=== PATIENT | male | born 1965 | race American Indian/Alaskan Native ===

== ENCOUNTER 2023-01-05 00:31 | Inpatient (IN) ==
[2023-01-05 01:13] LABS: ABS Basophils 0.1 10^3/uL (0.0-0.1); ABS Eosinophils 0.3 10^3/uL (0.0-0.5); ABS Lymphocytes 2.1 10^3/uL (1.0-4.8); ABS Monocytes 1.1 10^3/uL (0.0-1.1); ABS Neutrophils 8.5 10^3/uL (1.5-7.6); Eosinophil % 2.7 %; Hematocrit 37.7 % (38-53); Hemoglobin 12.5 g/dL (13.2-16.3); Lymphocyte % 17.3 %; Mean Corpuscular Hemoglobin 26.4 pg (27-33); Mean Corpuscular Volume 79.8 fL (80-97); Mean Platelet Volume 8.3 fL (7.5-11.2); Platelet Count 546 10^3/uL (150-450); Red Blood Count 4.72 10^6/uL (4.06-5.63); Red Cell Distribution Width 15.9 % (12-17); White Blood Count 12.2 10^3/uL (3.6-10.2)
[2023-01-05 01:35] LABS: Albumin 3.1 g/dL (3.2-5.2); Albumin/Globulin Ratio 0.7 (1-3); Calcium 8.5 mg/dL (8.6-10.3); Creatinine, Serum 0.62 mg/dL (0.67-1.17); Globulin 4.6 g/dL (2-4); Total Bilirubin 0.5 mg/dL (0.2-1.0); Total Protein 7.7 g/dL (6.4-8.9); eGFR CKD-EPI 110.8 (>60)
[2023-01-05 02:44] LABS: High Sensitivity Troponin 1 Hr 9 pg/mL (<20)
[2023-01-05] MEDS ORDERED: Digoxin IV 0.5 MG/2 ML AMP (0.25 MG/ML) IV SLOW PU ONE (02:58)
[2023-01-05 04:45] LABS: Urine Benzodiazepine Screen None Detected (None Detect); Urine Cannabinoids Screen Presumptive Positive (None Detect); Urine Opiates Screen None Detected (None Detect)
[2023-01-05] MEDS ORDERED: Diatrizoate Meg/Sod(CONTRAST) 30 ML ORAL.SOLN PO ONE ×2 (09:21→12:10)
[2023-01-05 12:34] LABS: Calcium 8.5 mg/dL (8.6-10.3); Creatinine, Serum 0.57 mg/dL (0.67-1.17); Magnesium 2.1 mg/dL (1.9-2.7); Potassium 4.1 mmol/L (3.5-5.0); eGFR CKD-EPI 113.6 (>60)
[2023-01-05 13:50] LABS: TSH Ultra Thyroid Stim Horm 1.76 mcIU/mL (0.34-5.60)
[2023-01-05 13:52] LABS: Free T3 3.26 pg/mL (2.5-3.9); Free T4 1.33 ng/dL (0.61-1.12)
[2023-01-05 15:18] LABS: Urine Appearance Clear; Urine Bilirubin Negative (Negative); Urine Blood 1+ (Negative); Urine Color Yellow; Urine Glucose Negative (Negative); Urine Ketones Negative (Negative); Urine Nitrite Negative (Negative); Urine Protein Negative (Negative); Urine Specific Gravity 1.014 (1.002-1.030); Urine Urobilinogen Positive (Negative)
[2023-01-05 15:28] LABS: Urine Bacteria Absent (Absent); Urine Red Blood Cell 2+(6-10/hpf) (Absent); Urine White Blood Cell Trace(0-5/hpf) (Absent)
[2023-01-06 08:36] LABS: ABS Basophils 0.2 10^3/uL (0.0-0.1); ABS Eosinophils 0.1 10^3/uL (0.0-0.5); ABS Lymphocytes 1.4 10^3/uL (1.0-4.8); ABS Monocytes 0.8 10^3/uL (0.0-1.1); ABS Neutrophils 9.1 10^3/uL (1.5-7.6); ABS Nucleated RBC 0.01 10^3/ul; Eosinophil % 1.2 %; Hematocrit 38.6 % (38-53); Hemoglobin 12.8 g/dL (13.2-16.3); Lymphocyte % 12.3 %; Mean Corpuscular Hemoglobin 26.7 pg (27-33); Mean Corpuscular Hgb Conc 33.3 g/dL (31-36); Mean Corpuscular Volume 80.1 fL (80-97); Mean Platelet Volume 7.9 fL (7.5-11.2); Platelet Count 626 10^3/uL (150-450); Red Blood Count 4.82 10^6/uL (4.06-5.63); White Blood Count 11.7 10^3/uL (3.6-10.2)
[2023-01-06 08:46] LABS: Calcium 8.3 mg/dL (8.6-10.3); Creatinine, Serum 0.6 mg/dL (0.67-1.17); Potassium 3.9 mmol/L (3.5-5.0); eGFR CKD-EPI 111.9 (>60)
[2023-01-06] MEDS ORDERED: Lactated Ringers 1000 ml BAG 1,000 ML IV SCH (09:00)
[2023-01-06] MEDS ORDERED: Acetaminophen IV 1 GM/100ML 1,000 MG/100 ML BAG IV PRN (09:46)
[2023-01-06] MEDS: Morphine 2 MG/ML SYRINGE IV PRN ×5 (10:01→21:12)
[2023-01-06] MEDS ORDERED: Iohexol 350 (CONTRAST) 500 ML MDV IV ONE (10:52)
[2023-01-06] MEDS ORDERED: Magnesium Hydroxide LIQ 30 ML UDC PO PRN (18:21)
[2023-01-06] MEDS: Polyethylene Glycol 3350 17 GM PACKET PO SCH (21:07)
[2023-01-06] MEDS: Senna TAB 8.6 mg TAB PO SCH (21:07)
[2023-01-07] MEDS: Morphine 2 MG/ML SYRINGE IV PRN ×7 (00:52→20:01)
[2023-01-07] MEDS ORDERED: cefTRIAXone 1 gm/50 mL D5W 1 GM/50 ML BAG IV SCH (05:00)
[2023-01-07 09:05] LABS: ABS Basophils 0.1 10^3/uL (0.0-0.1); ABS Eosinophils 0.2 10^3/uL (0.0-0.5); ABS Monocytes 0.7 10^3/uL (0.0-1.1); ABS Neutrophils 8.9 10^3/uL (1.5-7.6); Eosinophil % 1.6 %; Hematocrit 36.8 % (38-53); Hemoglobin 12.2 g/dL (13.2-16.3); Lymphocyte % 16.6 %; Mean Corpuscular Hemoglobin 26.5 pg (27-33); Mean Corpuscular Hgb Conc 33.1 g/dL (31-36); Mean Corpuscular Volume 79.9 fL (80-97); Platelet Count 630 10^3/uL (150-450); Red Cell Distribution Width 15.7 % (12-17); White Blood Count 11.9 10^3/uL (3.6-10.2)
[2023-01-07] MEDS: ceFAZolin 2 GM in NS PREMIX 2 GM/100 ML BAG IVPB SCH ×2 (09:28→17:51)
[2023-01-07] MEDS ORDERED: Iohexol 350 (CONTRAST) 500 ML MDV IV ONE (11:04)
[2023-01-07] MEDS: Senna TAB 8.6 mg TAB PO SCH (20:00)
[2023-01-07] MEDS: Polyethylene Glycol 3350 17 GM PACKET PO SCH (20:01)
[2023-01-08] MEDS: Morphine 2 MG/ML SYRINGE IV PRN ×8 (00:46→23:50)
[2023-01-08] MEDS: ceFAZolin 2 GM in NS PREMIX 2 GM/100 ML BAG IVPB SCH ×2 (02:02→07:38)
[2023-01-08] MEDS ORDERED: cefTRIAXone 1 gm/50 mL D5W 1 GM/50 ML BAG IV SCH (08:45)
[2023-01-08] MEDS ORDERED: cefTRIAXone 2 gm/50 mL D5W 2 GM/50 ML BAG IV SCH (09:00)
[2023-01-08 14:38] LABS: ABS Basophils 0.1 10^3/uL (0.0-0.1); ABS Eosinophils 0.3 10^3/uL (0.0-0.5); ABS Lymphocytes 1.7 10^3/uL (1.0-4.8); ABS Monocytes 0.8 10^3/uL (0.0-1.1); ABS Neutrophils 10.4 10^3/uL (1.5-7.6); Hematocrit 36.2 % (38-53); Hemoglobin 11.8 g/dL (13.2-16.3); Lymphocyte % 12.8 %; Mean Corpuscular Hemoglobin 26.1 pg (27-33); Mean Corpuscular Hgb Conc 32.6 g/dL (31-36); Mean Corpuscular Volume 80.2 fL (80-97); Mean Platelet Volume 7.9 fL (7.5-11.2); Platelet Count 621 10^3/uL (150-450); Red Blood Count 4.52 10^6/uL (4.06-5.63); Red Cell Distribution Width 15.9 % (12-17); White Blood Count 13.2 10^3/uL (3.6-10.2)
[2023-01-08] MEDS: cefTRIAXone 2 gm/50 mL D5W 2 GM/50 ML BAG IV SCH (14:48)
[2023-01-08 14:56] LABS: C Reactive Protein 239.08 mg/L (<8.01); Calcium 8.6 mg/dL (8.6-10.3); Creatinine, Serum 0.54 mg/dL (0.67-1.17); Potassium 3.8 mmol/L (3.5-5.0); eGFR CKD-EPI 114.8 (>60)
[2023-01-08] MEDS: Senna TAB 8.6 mg TAB PO SCH (21:35)
[2023-01-08] MEDS: Polyethylene Glycol 3350 17 GM PACKET PO SCH (22:17)
[2023-01-09] MEDS ORDERED: HYDROmorphone 1 MG/1 ML SYRINGE IV SLOW PU ONE (00:39)
[2023-01-09] MEDS: Morphine 2 MG/ML SYRINGE IV PRN ×9 (02:18→23:44)
[2023-01-09 06:02] LABS: ABS Basophils 0.1 10^3/uL (0.0-0.1); ABS Eosinophils 0.2 10^3/uL (0.0-0.5); ABS Lymphocytes 2.2 10^3/uL (1.0-4.8); ABS Monocytes 0.6 10^3/uL (0.0-1.1); ABS Neutrophils 11.8 10^3/uL (1.5-7.6); ABS Nucleated RBC 0.01 10^3/ul; Eosinophil % 1.2 %; Hematocrit 36.1 % (38-53); Hemoglobin 11.9 g/dL (13.2-16.3); Lymphocyte % 14.5 %; Mean Corpuscular Hemoglobin 26.3 pg (27-33); Mean Corpuscular Hgb Conc 32.9 g/dL (31-36); Mean Corpuscular Volume 79.8 fL (80-97); Mean Platelet Volume 8.3 fL (7.5-11.2); Nucleated Red Blood Cells % 0.1 %/100WBC (0.0-0.8); Platelet Count 644 10^3/uL (150-450); Red Blood Count 4.52 10^6/uL (4.06-5.63); Red Cell Distribution Width 15.7 % (12-17); White Blood Count 14.9 10^3/uL (3.6-10.2)
[2023-01-09 06:36] LABS: C Reactive Protein 248.79 mg/L (<8.01); Calcium 8.6 mg/dL (8.6-10.3); Creatinine, Serum 0.59 mg/dL (0.67-1.17); Potassium 3.9 mmol/L (3.5-5.0); eGFR CKD-EPI 111.8 (>60)
[2023-01-09] MEDS: cefTRIAXone 2 gm/50 mL D5W 2 GM/50 ML BAG IV SCH (14:15)
[2023-01-09] MEDS ORDERED: Gadoteridol (CONTRAST) 279.3 MG/ML 10 ML IV ONE (20:52)
[2023-01-09] MEDS: Polyethylene Glycol 3350 17 GM PACKET PO SCH (21:11)
[2023-01-09] MEDS: Senna TAB 8.6 mg TAB PO SCH (21:11)
[2023-01-10] MEDS: Morphine 2 MG/ML SYRINGE IV PRN ×3 (01:52→09:13)
[2023-01-10 06:09] LABS: ABS Basophils 0.1 10^3/uL (0.0-0.1); ABS Eosinophils 0.4 10^3/uL (0.0-0.5); ABS Lymphocytes 2.2 10^3/uL (1.0-4.8); ABS Monocytes 0.6 10^3/uL (0.0-1.1); ABS Neutrophils 9.8 10^3/uL (1.5-7.6); ABS Nucleated RBC 0.01 10^3/ul; Eosinophil % 3.2 %; Hematocrit 34.1 % (38-53); Hemoglobin 11.3 g/dL (13.2-16.3); Lymphocyte % 16.6 %; Mean Corpuscular Hemoglobin 26.4 pg (27-33); Mean Corpuscular Hgb Conc 33.2 g/dL (31-36); Mean Corpuscular Volume 79.7 fL (80-97); Mean Platelet Volume 7.8 fL (7.5-11.2); Nucleated Red Blood Cells % 0.1 %/100WBC (0.0-0.8); Platelet Count 690 10^3/uL (150-450); Red Blood Count 4.28 10^6/uL (4.06-5.63); White Blood Count 13.2 10^3/uL (3.6-10.2)
[2023-01-10 06:20] LABS: Calcium 8.7 mg/dL (8.6-10.3); Creatinine, Serum 0.49 mg/dL (0.67-1.17); Potassium 4.1 mmol/L (3.5-5.0); eGFR CKD-EPI 118.2 (>60)
[2023-01-10] MEDS: cefTRIAXone 2 gm/50 mL D5W 2 GM/50 ML BAG IV SCH (12:47)
[2023-01-10] MEDS: Senna TAB 8.6 mg TAB PO SCH (20:13)
[2023-01-10] MEDS: Polyethylene Glycol 3350 17 GM PACKET PO SCH (20:15)
[2023-01-11 07:14] LABS: ABS Basophils 0.1 10^3/uL (0.0-0.1); ABS Eosinophils 0.5 10^3/uL (0.0-0.5); ABS Lymphocytes 2.5 10^3/uL (1.0-4.8); ABS Monocytes 0.5 10^3/uL (0.0-1.1); ABS Neutrophils 8.6 10^3/uL (1.5-7.6); ABS Nucleated RBC 0.01 10^3/ul; Eosinophil % 3.8 %; Hematocrit 36.4 % (38-53); Hemoglobin 11.8 g/dL (13.2-16.3); Lymphocyte % 20.3 %; Mean Corpuscular Hemoglobin 26.1 pg (27-33); Mean Corpuscular Hgb Conc 32.4 g/dL (31-36); Mean Corpuscular Volume 80.7 fL (80-97); Mean Platelet Volume 7.8 fL (7.5-11.2); Nucleated Red Blood Cells % 0.1 %/100WBC (0.0-0.8); Platelet Count 671 10^3/uL (150-450); Red Blood Count 4.51 10^6/uL (4.06-5.63); White Blood Count 12.1 10^3/uL (3.6-10.2)
[2023-01-11 08:29] LABS: Anion Gap 9 mmol/L (2-16); Blood Urea Nitrogen 16 mg/dL (6-24); CO2 Carbon Dioxide 22 mmol/L (22-32); Calcium 8.8 mg/dL (8.6-10.3); Chloride 100 mmol/L (101-111); Glucose 86 mg/dL (70-100); Sodium 131 mmol/L (135-145); eGFR CKD-EPI 111.2 (>60)
[2023-01-11] MEDS: Morphine 2 MG/ML SYRINGE IV PRN ×3 (08:53→20:44)
[2023-01-11 10:48] LABS: Potassium, Whole Blood 5.4 mmol/L (3.4-4.5)
[2023-01-11] MEDS: cefTRIAXone 2 gm/50 mL D5W 2 GM/50 ML BAG IV SCH (12:52)
[2023-01-11] MEDS: Polyethylene Glycol 3350 17 GM PACKET PO SCH (20:44)
[2023-01-11] MEDS: Senna TAB 8.6 mg TAB PO SCH (20:44)
[2023-01-12] MEDS: Morphine 2 MG/ML SYRINGE IV PRN ×8 (00:01→23:59)
[2023-01-12 07:00] LABS: ABS Basophils 0.1 10^3/uL (0.0-0.1); ABS Eosinophils 0.5 10^3/uL (0.0-0.5); ABS Lymphocytes 2.3 10^3/uL (1.0-4.8); ABS Monocytes 0.6 10^3/uL (0.0-1.1); ABS Neutrophils 7.8 10^3/uL (1.5-7.6); ABS Nucleated RBC 0.01 10^3/ul; Eosinophil % 4.4 %; Hematocrit 35.4 % (38-53); Hemoglobin 11.6 g/dL (13.2-16.3); Lymphocyte % 20.3 %; Mean Corpuscular Hemoglobin 26.3 pg (27-33); Mean Corpuscular Hgb Conc 32.8 g/dL (31-36); Mean Platelet Volume 7.2 fL (7.5-11.2); Nucleated Red Blood Cells % 0.1 %/100WBC (0.0-0.8); Platelet Count 679 10^3/uL (150-450); Red Blood Count 4.42 10^6/uL (4.06-5.63); Red Cell Distribution Width 16.1 % (12-17); White Blood Count 11.3 10^3/uL (3.6-10.2)
[2023-01-12] MEDS ORDERED: NS 0.9% 1000 ml BAG 1,000 ML IV ONE (07:00)
[2023-01-12 07:08] LABS: Calcium 8.8 mg/dL (8.6-10.3); Creatinine, Serum 0.56 mg/dL (0.67-1.17); Magnesium 1.6 mg/dL (1.9-2.7); Potassium 4.1 mmol/L (3.5-5.0); eGFR CKD-EPI 113.5 (>60)
[2023-01-12] MEDS ORDERED: Midazolam 5 mg/5 ml VIAL 1 mg/ml 5 ml VIAL (5 mg) ONE (07:47)
[2023-01-12] MEDS ORDERED: fentaNYL 100 mcg/2 ml 50 MCG/ML VIAL ONE (07:47)
[2023-01-12] MEDS ORDERED: Flumazenil 0.5 mg/5 ml 0.1 MG/ML 5 ml VIAL ONE (07:48)
[2023-01-12] MEDS ORDERED: Naloxone 0.4 mg VIAL 0.4 mg/ml 1 ml VIAL ONE (07:48)
[2023-01-12] MEDS ORDERED: Midazolam 10 mg/10 ml VIAL 1 mg/ml 10 ml VIAL (10 mg) IV SLOW PU ONE (08:03)
[2023-01-12] MEDS ORDERED: fentaNYL 100 mcg/2 ml 50 MCG/ML VIAL IV SLOW PU ONE (08:03)
[2023-01-12] MEDS ORDERED: Magnesium Sulfate 2 gm BAG 2 GM/50 ML BAG IVPB ONE (08:44)
[2023-01-12] MEDS ORDERED: Magnesium Sulfate IV 1GM/100ML 1 GM/100 ML BAG IV ONE (10:44)
[2023-01-12] MEDS ORDERED: Metoprolol Tartrate 5 mg VIAL 5 ml VIAL (1 mg/ml) IV ONE (15:42)
[2023-01-12] MEDS: cefTRIAXone 2 gm/50 mL D5W 2 GM/50 ML BAG IV SCH (16:04)
[2023-01-12] MEDS ORDERED: Metoprolol Tartrate 5 mg VIAL 5 ml VIAL (1 mg/ml) IV PRN (17:30)
[2023-01-12] MEDS: Polyethylene Glycol 3350 17 GM PACKET PO SCH (20:30)
[2023-01-12] MEDS: Senna TAB 8.6 mg TAB PO SCH (20:30)
[2023-01-13] MEDS: Morphine 2 MG/ML SYRINGE IV PRN ×3 (05:53→18:05)
[2023-01-13] MEDS: cefTRIAXone 2 gm/50 mL D5W 2 GM/50 ML BAG IV SCH (13:58)
[2023-01-13] MEDS: Polyethylene Glycol 3350 17 GM PACKET PO SCH (22:24)
[2023-01-13] MEDS: Senna TAB 8.6 mg TAB PO SCH (22:25)
[2023-01-14 07:49] LABS: Anion Gap 8 mmol/L (2-16); Blood Urea Nitrogen 17 mg/dL (6-24); CO2 Carbon Dioxide 23 mmol/L (22-32); Calcium 8.7 mg/dL (8.6-10.3); Chloride 99 mmol/L (101-111); Glucose 97 mg/dL (70-100); Sodium 130 mmol/L (135-145); eGFR CKD-EPI 117.5 (>60)
[2023-01-14 07:52] LABS: ABS Basophils 0.1 10^3/uL (0.0-0.1); ABS Eosinophils 0.6 10^3/uL (0.0-0.5); ABS Lymphocytes 2.6 10^3/uL (1.0-4.8); ABS Monocytes 0.6 10^3/uL (0.0-1.1); ABS Neutrophils 6.8 10^3/uL (1.5-7.6); ABS Nucleated RBC 0.01 10^3/ul; Eosinophil % 5.9 %; Hematocrit 40.6 % (38-53); Hemoglobin 12.9 g/dL (13.2-16.3); Mean Corpuscular Hemoglobin 26.3 pg (27-33); Mean Corpuscular Hgb Conc 31.8 g/dL (31-36); Mean Corpuscular Volume 82.6 fL (80-97); Mean Platelet Volume 6.9 fL (7.5-11.2); Nucleated Red Blood Cells % 0.1 %/100WBC (0.0-0.8); Platelet Count 520 10^3/uL (150-450); Red Blood Count 4.92 10^6/uL (4.06-5.63); Red Cell Distribution Width 16.4 % (12-17); White Blood Count 10.8 10^3/uL (3.6-10.2)
[2023-01-14] MEDS: Morphine 2 MG/ML SYRINGE IV PRN (09:21)
[2023-01-14 11:15] LABS: Magnesium 1.6 mg/dL (1.9-2.7); Potassium Redraw 4.1 mmol/L (3.5-5.0)
[2023-01-14] MEDS ORDERED: Morphine 2 MG/ML SYRINGE IV PRN (11:15)
[2023-01-14] MEDS ORDERED: Magnesium Sulfate 2 gm BAG 2 GM/50 ML BAG IVPB ONE (11:23)
[2023-01-14] MEDS: cefTRIAXone 2 gm/50 mL D5W 2 GM/50 ML BAG IV SCH (17:29)
[2023-01-14] MEDS: Senna TAB 8.6 mg TAB PO SCH (19:46)
[2023-01-14] MEDS: Polyethylene Glycol 3350 17 GM PACKET PO SCH (19:51)
[2023-01-14] MEDS ORDERED: Lidocaine PATCH 4% TOPICAL ONE (21:42)
[2023-01-14] MEDS ORDERED: Ondansetron 4 mg VIAL 2 MG/ML 2 ml VIAL IV ONE (22:22)
[2023-01-15] MEDS: cefTRIAXone 2 gm/50 mL D5W 2 GM/50 ML BAG IV SCH (12:20)
[2023-01-15] MEDS: Polyethylene Glycol 3350 17 GM PACKET PO SCH (19:49)
[2023-01-15] MEDS: Senna TAB 8.6 mg TAB PO SCH (19:49)
[2023-01-16 08:18] LABS: ABS Basophils 0.2 10^3/uL (0.0-0.1); ABS Eosinophils 0.4 10^3/uL (0.0-0.5); ABS Lymphocytes 1.8 10^3/uL (1.0-4.8); ABS Monocytes 0.5 10^3/uL (0.0-1.1); ABS Neutrophils 9.2 10^3/uL (1.5-7.6); ABS Nucleated RBC 0.01 10^3/ul; Eosinophil % 3.5 %; Hematocrit 36.5 % (38-53); Hemoglobin 12.1 g/dL (13.2-16.3); Lymphocyte % 14.6 %; Mean Corpuscular Hemoglobin 26.1 pg (27-33); Mean Corpuscular Volume 79.2 fL (80-97); Nucleated Red Blood Cells % 0.1 %/100WBC (0.0-0.8); Platelet Count 594 10^3/uL (150-450); Red Blood Count 4.61 10^6/uL (4.06-5.63); Red Cell Distribution Width 16.4 % (12-17)
[2023-01-16 10:06] LABS: Creatinine, Serum 0.63 mg/dL (0.67-1.17); Magnesium 1.8 mg/dL (1.9-2.7); Potassium 4.2 mmol/L (3.5-5.0); eGFR CKD-EPI 109.6 (>60)
[2023-01-16] MEDS ORDERED: Magnesium Sulfate 2 gm BAG 2 GM/50 ML BAG IVPB ONE (11:50)
[2023-01-16 12:05] LABS: HDL Cholesterol 35.9 mg/dL
[2023-01-16] MEDS: cefTRIAXone 2 gm/50 mL D5W 2 GM/50 ML BAG IV SCH (13:45)
[2023-01-16] MEDS ORDERED: Magnesium Sulfate IV 1GM/100ML 1 GM/100 ML BAG IV ONE (13:50)
[2023-01-16] MEDS: Morphine 2 MG/ML SYRINGE IV PRN (19:44)
[2023-01-16] MEDS: Polyethylene Glycol 3350 17 GM PACKET PO SCH (20:49)
[2023-01-16] MEDS: Senna TAB 8.6 mg TAB PO SCH (20:49)
[2023-01-16] MEDS ORDERED: HYDROmorphone 1 MG/1 ML SYRINGE IV SLOW PU ONE (21:02)
[2023-01-17] MEDS: Morphine 2 MG/ML SYRINGE IV PRN (03:23)
[2023-01-17] MEDS ORDERED: HYDROmorphone 1 MG/1 ML SYRINGE IV ONE (04:46)
[2023-01-17 06:41] LABS: ABS Basophils 0.1 10^3/uL (0.0-0.1); ABS Eosinophils 0.5 10^3/uL (0.0-0.5); ABS Lymphocytes 2.2 10^3/uL (1.0-4.8); ABS Monocytes 0.7 10^3/uL (0.0-1.1); ABS Nucleated RBC 0.01 10^3/ul; Eosinophil % 4.7 %; Hematocrit 34.2 % (38-53); Hemoglobin 11.1 g/dL (13.2-16.3); Lymphocyte % 18.9 %; Mean Corpuscular Hemoglobin 25.8 pg (27-33); Mean Corpuscular Hgb Conc 32.5 g/dL (31-36); Mean Corpuscular Volume 79.6 fL (80-97); Mean Platelet Volume 7.5 fL (7.5-11.2); Nucleated Red Blood Cells % 0.1 %/100WBC (0.0-0.8); Platelet Count 527 10^3/uL (150-450); Red Cell Distribution Width 15.8 % (12-17); White Blood Count 11.6 10^3/uL (3.6-10.2)
[2023-01-17 07:02] LABS: Calcium 8.4 mg/dL (8.6-10.3); Creatinine, Serum 0.52 mg/dL (0.67-1.17); Magnesium 1.9 mg/dL (1.9-2.7); Potassium 4.3 mmol/L (3.5-5.0); eGFR CKD-EPI 116.1 (>60)
[2023-01-17] MEDS: cefTRIAXone 2 gm/50 mL D5W 2 GM/50 ML BAG IV SCH (13:45)
[2023-01-17] MEDS: Senna TAB 8.6 mg TAB PO SCH (21:01)
[2023-01-17] MEDS: Polyethylene Glycol 3350 17 GM PACKET PO SCH (21:03)
[2023-01-18] MEDS: cefTRIAXone 2 gm/50 mL D5W 2 GM/50 ML BAG IV SCH (13:48)
[2023-01-18] MEDS: Polyethylene Glycol 3350 17 GM PACKET PO SCH (20:22)
[2023-01-18] MEDS: Senna TAB 8.6 mg TAB PO SCH (20:22)
[2023-01-19 06:23] LABS: ABS Basophils 0.1 10^3/uL (0.0-0.1); ABS Eosinophils 0.6 10^3/uL (0.0-0.5); ABS Lymphocytes 2.2 10^3/uL (1.0-4.8); ABS Monocytes 0.6 10^3/uL (0.0-1.1); ABS Neutrophils 6.4 10^3/uL (1.5-7.6); ABS Nucleated RBC 0.01 10^3/ul; Eosinophil % 5.9 %; Hematocrit 35.9 % (38-53); Lymphocyte % 22.2 %; Mean Corpuscular Hemoglobin 26.3 pg (27-33); Mean Corpuscular Hgb Conc 33.3 g/dL (31-36); Mean Corpuscular Volume 79.1 fL (80-97); Mean Platelet Volume 7.3 fL (7.5-11.2); Nucleated Red Blood Cells % 0.1 %/100WBC (0.0-0.8); Platelet Count 550 10^3/uL (150-450); Red Blood Count 4.54 10^6/uL (4.06-5.63)
[2023-01-19 06:50] LABS: Calcium 8.7 mg/dL (8.6-10.3); Creatinine, Serum 0.59 mg/dL (0.67-1.17); Potassium 4.2 mmol/L (3.5-5.0); eGFR CKD-EPI 111.8 (>60)
[2023-01-19] MEDS: cefTRIAXone 2 gm/50 mL D5W 2 GM/50 ML BAG IV SCH (14:13)
[2023-01-19] MEDS: Senna TAB 8.6 mg TAB PO SCH (21:45)
[2023-01-19] MEDS: Polyethylene Glycol 3350 17 GM PACKET PO SCH (21:45)
[2023-01-20] MEDS: cefTRIAXone 2 gm/50 mL D5W 2 GM/50 ML BAG IV SCH (14:36)
[2023-01-20] MEDS: Polyethylene Glycol 3350 17 GM PACKET PO SCH (21:21)
[2023-01-20] MEDS: Senna TAB 8.6 mg TAB PO SCH (21:22)
[2023-01-21 07:49] LABS: ABS Basophils 0.1 10^3/uL (0.0-0.1); ABS Eosinophils 0.5 10^3/uL (0.0-0.5); ABS Lymphocytes 2.9 10^3/uL (1.0-4.8); ABS Monocytes 0.9 10^3/uL (0.0-1.1); ABS Neutrophils 5.6 10^3/uL (1.5-7.6); Eosinophil % 5.4 %; Hematocrit 33.7 % (38-53); Lymphocyte % 29.1 %; Mean Corpuscular Hemoglobin 25.9 pg (27-33); Mean Corpuscular Hgb Conc 32.6 g/dL (31-36); Mean Corpuscular Volume 79.6 fL (80-97); Mean Platelet Volume 6.8 fL (7.5-11.2); Platelet Count 550 10^3/uL (150-450); Red Blood Count 4.24 10^6/uL (4.06-5.63); Red Cell Distribution Width 15.9 % (12-17); White Blood Count 9.9 10^3/uL (3.6-10.2)
[2023-01-21 08:14] LABS: Albumin 2.9 g/dL (3.2-5.2); Albumin/Globulin Ratio 0.6 (1-3); C Reactive Protein 122.94 mg/L (<8.01); Calcium 8.8 mg/dL (8.6-10.3); Creatinine, Serum 0.62 mg/dL (0.67-1.17); Globulin 5.1 g/dL (2-4); Potassium 4.1 mmol/L (3.5-5.0); Total Bilirubin 0.2 mg/dL (0.2-1.0); eGFR CKD-EPI 110.1 (>60)
[2023-01-21] MEDS: Polyethylene Glycol 3350 17 GM PACKET PO SCH (21:28)
[2023-01-21] MEDS: Senna TAB 8.6 mg TAB PO SCH (21:28)
[2023-01-22 15:12] VITALS: BP 157/69
== END 2023-01-22 15:59 | disposition home or self-care (01) | DRG 201 ==
LOC: ED 00:31 → SUATTDRO 06:39 → EDHOLD 06:39 → MEDTELE 20:10
PROVIDERS: ADMIT Internal Medicine Pulmonary Disease; ATTEND Internal Medicine

== ENCOUNTER 2023-05-08 12:58 | Inpatient (IN) ==
[2023-05-08 13:44] LABS: Activated Partial Thrombo Time 33.1 seconds (26.0-38.0); INR 1.47 (0.83-1.13)
[2023-05-08 14:29] LABS: Albumin 3.8 g/dL (3.2-5.2); C Reactive Protein 60.5 mg/L (<8.01); Calcium 8.5 mg/dL (8.6-10.3); Creatinine, Serum 0.84 mg/dL (0.67-1.17); Globulin 3.9 g/dL (2-4); Potassium 4.3 mmol/L (3.5-5.0); Total Protein 7.7 g/dL (6.4-8.9); eGFR CKD-EPI 100.5 (>60)
[2023-05-08 14:34] LABS: ABS Basophils 0.1 10^3/uL (0.0-0.1); ABS Eosinophils 0.3 10^3/uL (0.0-0.5); ABS Lymphocytes 2.3 10^3/uL (1.0-4.8); ABS Monocytes 0.4 10^3/uL (0.0-1.1); ABS Neutrophils 7.4 10^3/uL (1.5-7.6); ABS Nucleated RBC 0.01 10^3/ul; Eosinophil % 2.5 %; Hemoglobin 11.1 g/dL (13.2-16.3); Lymphocyte % 21.8 %; Mean Corpuscular Hemoglobin 25.2 pg (27-33); Mean Corpuscular Hgb Conc 31.9 g/dL (31-36); Mean Corpuscular Volume 79.1 fL (80-97); Mean Platelet Volume 8.6 fL (7.5-11.2); Nucleated Red Blood Cells % 0.1 %/100WBC (0.0-0.8); Platelet Count 279 10^3/uL (150-450); Red Blood Count 4.42 10^6/uL (4.06-5.63); Red Cell Distribution Width 17.3 % (12-17); White Blood Count 10.5 10^3/uL (3.6-10.2)
[2023-05-08] MEDS: Iohexol 350 (CONTRAST) 500 ML MDV IV ONE (15:31)
[2023-05-08 15:41] LABS: Venous Bicarbonate HCO3 25.4 mmol/L (24-28)
[2023-05-08] MEDS: Azithromycin 500 mg/250 ml NS 500 MG/250 ML BAG IVPB ONE (17:30)
[2023-05-08] MEDS: NS 0.9% 1000 ml BAG 1,000 ML IV ONE (17:30)
[2023-05-08] MEDS ORDERED: Ondansetron 4 mg VIAL 2 MG/ML 2 ml VIAL ONE (17:43)
[2023-05-08] MEDS: Ondansetron 4 mg VIAL 2 MG/ML 2 ml VIAL IV ONE ×2 (17:46→18:42)
[2023-05-08 18:18] LABS: High Sensitivity Troponin 1 Hr 45 pg/mL (<20)
[2023-05-08] MEDS: cefTRIAXone 1 gm/50 mL D5W 1 GM/50 ML BAG IV ONE (19:14)
[2023-05-08 20:01] LABS: Magnesium 1.9 mg/dL (1.9-2.7)
[2023-05-08] MEDS ORDERED: Albuterol/Ipratropium NEB.SOL (2.5/0.5 MG) 3 ML NEB.SOLN ONE (21:29)
[2023-05-08] MEDS: Albuterol/Ipratropium NEB.SOL (2.5/0.5 MG) 3 ML NEB.SOLN INH PRN (21:32)
[2023-05-09] MEDS: Magnesium Sulfate IV 1GM/100ML 1 GM/100 ML BAG IV ONE (03:06)
[2023-05-09] MEDS: Morphine 2 MG/ML SYRINGE IV PRN (04:55)
[2023-05-09 06:27] LABS: Hemoglobin 11.9 g/dL (13.2-16.3); Mean Corpuscular Hemoglobin 25.3 pg (27-33); Mean Corpuscular Hgb Conc 30.5 g/dL (31-36); Mean Platelet Volume 8.6 fL (7.5-11.2); Platelet Count 247 10^3/uL (150-450); Red Cell Distribution Width 18.3 % (12-17)
[2023-05-09 07:13] LABS: Blood Urea Nitrogen 30 mg/dL (6-24); CO2 Carbon Dioxide < 7 mmol/L (22-32); Calcium 8.4 mg/dL (8.6-10.3); Chloride 99 mmol/L (101-111); Creatinine, Serum 2.05 mg/dL (0.67-1.17); Glucose 58 mg/dL (70-100); Potassium 6.7 mmol/L (3.5-5.0); Sodium 133 mmol/L (135-145); eGFR CKD-EPI 36.6 (>60)
[2023-05-09] MEDS: Dextrose 50% Syringe 50 ml 25 GM/50 ML SYRINGE IV PUSH ONE (07:26)
[2023-05-09 07:36] LABS: ABS Basophils 0.1 10^3/uL (0.0-0.1); ABS Lymphocytes 1.1 10^3/uL (1.0-4.8); ABS Neutrophils 11.8 10^3/uL (1.5-7.6); ABS Nucleated RBC 0.06 10^3/ul; Anisocytosis 1+; Eosinophil % 0.1 %; Lymphocyte % 8.1 %; Nucleated Red Blood Cells % 0.4 %/100WBC (0.0-0.8); Polychromasia 1+
[2023-05-09 07:55] LABS: PCO2 Arterial 21 mmHg (35-45); PO2 Arterial 109 mmHg (80-100)
[2023-05-09] MEDS: NS 0.9% 1000 ml BAG 1,000 ML IV ONE (08:13)
[2023-05-09 08:29] LABS: Blood Urea Nitrogen 32 mg/dL (6-24); CO2 Carbon Dioxide < 7 mmol/L (22-32); Calcium 8.3 mg/dL (8.6-10.3); Chloride 96 mmol/L (101-111); Creatinine, Serum 2.31 mg/dL (0.67-1.17); Glucose 132 mg/dL (70-100); Sodium 131 mmol/L (135-145); eGFR CKD-EPI 31.7 (>60)
[2023-05-09 09:29] LABS: Potassium Redraw 5.8 mmol/L (3.5-5.0)
[2023-05-09] MEDS: SODIUM ZIRCONIUM CYCLOSILICATE 10 GM PACKET PO ONE (10:33)
[2023-05-09] MEDS ORDERED: Sulfur Hexaflouride MICROSPHR 25 MG VIAL ONE (10:43)
[2023-05-09] MEDS ORDERED: Vancomycin per Pharmacy 1 EA NOTE FOLLOW UP SCH (11:00)
[2023-05-09] MEDS: Lactated Ringers 1000 ml BAG 1,000 ML IV SCH (11:04)
[2023-05-09] MEDS: Vancomycin 2,000 MG in NS 0.9% 500 ml BAG 500 ML IVPB ONE (11:05)
[2023-05-09 11:10] LABS: Albumin 3.6 g/dL (3.2-5.2); Alcohol, S < 13 mg/dL (<13); Alkaline Phosphatase 102 U/L (35-149); Direct Bilirubin 1.7 mg/dL (0.03-0.18); Globulin 3.7 g/dL (2-4); Indirect Bilirubin 1.6 mg/dL (0.3-1.0); Total Bilirubin 3.3 mg/dL (0.2-1.0); Total Protein 7.3 g/dL (6.4-8.9)
[2023-05-09 11:29] LABS: ALT 1302 U/L (7-52); AST 1655 U/L (13-39)
[2023-05-09 11:32] LABS: High Sensitivity Troponin 1 Hr 103 pg/mL (<20)
[2023-05-09 12:25] LABS: INR 2.72 (0.83-1.13)
[2023-05-09 13:08] VITALS: BP 97/63
[2023-05-09 13:09] LABS: Calcium 8.3 mg/dL (8.6-10.3); Creatinine, Serum 2.63 mg/dL (0.67-1.17); Potassium 7.4 mmol/L (3.5-5.0); eGFR CKD-EPI 27.2 (>60)
[2023-05-09] MEDS: Norepinephrine 4 MG/250mL D5W 4,000 MCG/250 ML BAG IV ONE ×2 (13:33→16:20)
[2023-05-09] MEDS ORDERED: Rocuronium 50 mg VIAL 10 mg/ml 5 ml VIAL (50 mg) ONE (13:53)
[2023-05-09] MEDS ORDERED: Midazolam 10 mg/10 ml VIAL 1 mg/ml 10 ml VIAL (10 mg) ONE (13:53)
[2023-05-09] MEDS ORDERED: Etomidate 40 mg/20 ml (2 MG/ML) 20 ml VIAL (40 mg) ONE (13:53)
[2023-05-09] MEDS: Midazolam PREMIXBAG 1 MG/ML NS 100 ML IV ONE (14:05)
[2023-05-09] MEDS: CALCIUM GLUCONATE 1GM/50ML NS 1 GM/50 ML BAG IV ONE (14:14)
[2023-05-09] MEDS: Rocuronium 50 mg VIAL 10 mg/ml 5 ml VIAL (50 mg) ONE (14:16)
[2023-05-09] MEDS: Milrinone 200 MCG/ML PREMIXBAG 20,000 MCG/100 ML BAG IV SCH (14:20)
[2023-05-09] MEDS: Sodium Bicarbonate 8.4% SYR 50 ml SYRINGE IV ONE (14:22)
[2023-05-09] MEDS: Sodium Bicarbonate 8.4% SYR 50 ml SYRINGE ONE (14:22)
[2023-05-09] MEDS: Succinylcholine 200 mg VIAL 20 mg/ml 10 ml VIAL (200 mg) ONE (14:22)
[2023-05-09] MEDS: Midazolam 5 mg/5 ml VIAL 1 mg/ml 5 ml VIAL (5 mg) ONE (14:23)
[2023-05-09] MEDS: Midazolam 2 mg/2 ml VIAL 1 mg/ml 2 ml VIAL (2 mg) IV SLOW PU ONE (14:23)
[2023-05-09] MEDS: DOBUTamine 2000 MCG/ML IVPREMX 500 MG/250 ML BAG IV SCH (15:00)
[2023-05-09] MEDS: Azithromycin 500 mg/250 ml NS 500 MG/250 ML BAG IVPB SCH (15:07)
[2023-05-09] MEDS: Norepinephrine 4 MG/250mL D5W 4,000 MCG/250 ML BAG IV SCH (15:58)
[2023-05-09] MEDS ORDERED: Chlorhexidine MOUTHWASH 0.12% 15 ML UDC SWISH SPIT SCH (16:00)
[2023-05-09] MEDS ORDERED: Azithromycin 500 mg/250 ml NS 500 MG/250 ML BAG IVPB SCH (16:00)
[2023-05-09] MEDS ORDERED: Pantoprazole VIAL 40 MG VIAL IV SCH (16:00)
[2023-05-09] MEDS: Midazolam PREMIXBAG 1 MG/ML NS 100 ML IV SCH (16:21)
[2023-05-09 16:22] LABS: Resp Rate 30
[2023-05-09 16:25] LABS: PCO2 Arterial 35 mmHg (35-45); PO2 Arterial 144 mmHg (80-100)
[2023-05-09] MEDS ORDERED: cefTRIAXone 1 gm/50 mL D5W 1 GM/50 ML BAG IV SCH (17:00)
[2023-05-09 17:37] LABS: Calcium 7.7 mg/dL (8.6-10.3); Creatinine, Serum 2.91 mg/dL (0.67-1.17); Potassium 6.5 mmol/L (3.5-5.0); eGFR CKD-EPI 24.1 (>60)
[2023-05-10] MEDS ORDERED: Vancomycin Random Level NOTE FOLLOW UP ONE (06:00)
== END 2023-05-09 17:00 | disposition short-term general hospital (02) | DRG 194 ==
LOC: EDHOLD 12:58 → ED 12:58 → MEDTELE 21:59 → ICU 05-09 07:53
PROVIDERS: ADMIT Hospitalist; ATTEND Internal Medicine Pulmonary Disease

== ENCOUNTER 2023-06-24 17:50 | Inpatient (IN) ==
[2023-06-24 18:06] LABS: ABS Basophils 0.1 10^3/uL (0.0-0.1); ABS Eosinophils 0.2 10^3/uL (0.0-0.5); ABS Lymphocytes 2.2 10^3/uL (1.0-4.8); ABS Monocytes 0.4 10^3/uL (0.0-1.1); ABS Neutrophils 3.8 10^3/uL (1.5-7.6); ABS Nucleated RBC 0.02 10^3/ul; Eosinophil % 3.3 %; Hematocrit 30.9 % (38-53); Hemoglobin 9.9 g/dL (13.2-16.3); Lymphocyte % 32.7 %; Mean Corpuscular Hemoglobin 25.2 pg (27-33); Mean Corpuscular Hgb Conc 32.1 g/dL (31-36); Mean Corpuscular Volume 78.6 fL (80-97); Mean Platelet Volume 8.6 fL (7.5-11.2); Nucleated Red Blood Cells % 0.3 %/100WBC (0.0-0.8); Platelet Count 253 10^3/uL (150-450); Red Blood Count 3.93 10^6/uL (4.06-5.63); Red Cell Distribution Width 19.7 % (12-17); White Blood Count 6.8 10^3/uL (3.6-10.2)
[2023-06-24 18:16] LABS: INR 1.87 (0.83-1.13)
[2023-06-24 18:35] LABS: Albumin 3.6 g/dL (3.2-5.2); Albumin/Globulin Ratio 0.9 (1-3); Calcium 8.8 mg/dL (8.6-10.3); Creatinine, Serum 1.4 mg/dL (0.67-1.17); Globulin 3.8 g/dL (2-4); Potassium 3.6 mmol/L (3.5-5.0); Total Bilirubin 1.1 mg/dL (0.2-1.0); Total Protein 7.4 g/dL (6.4-8.9); eGFR CKD-EPI 57.9 (>60)
[2023-06-24 19:31] LABS: High Sensitivity Troponin 1 Hr 47 pg/mL (<20)
[2023-06-25 01:31] LABS: C Reactive Protein 52.27 mg/L (<8.01); Magnesium 1.3 mg/dL (1.9-2.7)
[2023-06-25 01:53] LABS: Ferritin 87.7 ng/mL (24-336)
[2023-06-25] MEDS: Magnesium Sulf 4 GM/100 ML IV 4,000 MG/100 ML BAG IVPB ONE (03:30)
[2023-06-25] MEDS: Ondansetron 4 mg VIAL 2 MG/ML 2 ml VIAL IV PRN (04:32)
[2023-06-25] MEDS ORDERED: Acetaminophen IV 1 GM/100ML 1,000 MG/100 ML BAG IV PRN (05:20)
[2023-06-25] MEDS: Morphine 2 MG/ML SYRINGE IV PRN (05:40)
[2023-06-25 06:13] LABS: ABS Basophils 0.1 10^3/uL (0.0-0.1); ABS Eosinophils 0.1 10^3/uL (0.0-0.5); ABS Monocytes 0.4 10^3/uL (0.0-1.1); ABS Neutrophils 4.2 10^3/uL (1.5-7.6); ABS Nucleated RBC 0.02 10^3/ul; Eosinophil % 2.1 %; Hemoglobin 9.7 g/dL (13.2-16.3); Lymphocyte % 29.3 %; Mean Corpuscular Hemoglobin 25.4 pg (27-33); Mean Corpuscular Hgb Conc 32.5 g/dL (31-36); Mean Corpuscular Volume 78.3 fL (80-97); Mean Platelet Volume 8.9 fL (7.5-11.2); Nucleated Red Blood Cells % 0.3 %/100WBC (0.0-0.8); Platelet Count 251 10^3/uL (150-450); Red Blood Count 3.83 10^6/uL (4.06-5.63); Red Cell Distribution Width 19.2 % (12-17); White Blood Count 6.8 10^3/uL (3.6-10.2)
[2023-06-25 06:40] LABS: Calcium 8.4 mg/dL (8.6-10.3); Creatinine, Serum 1.41 mg/dL (0.67-1.17); Potassium 3.9 mmol/L (3.5-5.0); eGFR CKD-EPI 57.4 (>60)
[2023-06-25 06:52] LABS: Magnesium 2.2 mg/dL (1.9-2.7)
[2023-06-25] MEDS: Aspirin EC 81 mg TAB.EC (enteric coated) PO SCH (09:26)
[2023-06-25] MEDS: Ferric Gluconate IV 250 MG in NS 0.9% 250 ml 200 ML IVPB SCH (09:28)
[2023-06-25] MEDS: Lactated Ringers 1000 ml BAG 1,000 ML IV ONE ×2 (10:59→20:51)
[2023-06-25] MEDS: Furosemide 20 mg/2 ml IV VIAL IV SLOW PU ONE ×2 (11:35→13:17)
[2023-06-25] MEDS: Heparin 5000 UNITS/ML 1 mL VIAL IV SCH (11:37)
[2023-06-25] MEDS: Heparin DRIP 25,000 UNITS BAG 25,000 UNITS/250 ML BAG IV SCH (11:39)
[2023-06-25] MEDS ORDERED: Heparin 5000 UNITS/ML 1 mL VIAL SUBCUT SCH (14:00)
[2023-06-25] MEDS: Bumetanide IV 0.25 MG/ML 4 ml VIAL (1 mg) IV SLOW PU SCH (14:43)
[2023-06-25] MEDS ORDERED: Sulfur Hexaflouride MICROSPHR 25 MG VIAL ONE (16:28)
[2023-06-25] MEDS: Iodixanol (CONTRAST) 320 MG/ML 100 ML SDV IV ONE (17:29)
[2023-06-25] MEDS: Lactated Ringers 1000 ml BAG 1,000 ML IV SCH (18:00)
[2023-06-25] MEDS ORDERED: Zosyn per Pharmacy NOTE FOLLOW UP SCH (19:00)
[2023-06-25] MEDS ORDERED: Vancomycin 1,500 MG in NS 0.9% 250 ml 250 ML IVPB SCH (19:00)
[2023-06-25 19:09] LABS: Hematocrit 34.4 % (38-53); Hemoglobin 10.4 g/dL (13.2-16.3); Mean Corpuscular Hemoglobin 25.5 pg (27-33); Mean Corpuscular Hgb Conc 30.2 g/dL (31-36); Mean Corpuscular Volume 84.4 fL (80-97); Mean Platelet Volume 9.5 fL (7.5-11.2); Platelet Count 245 10^3/uL (150-450); Red Blood Count 4.08 10^6/uL (4.06-5.63); Red Cell Distribution Width 20.2 % (12-17); White Blood Count 9.8 10^3/uL (3.6-10.2)
[2023-06-25] MEDS: D5LR 1000 ml BAG 1,000 ML IV SCH ×2 (19:15→20:08)
[2023-06-25 19:26] LABS: INR 2.54 (0.83-1.13)
[2023-06-25] MEDS ORDERED: Vancomycin per Pharmacy 1 EA NOTE FOLLOW UP PRN (19:36)
[2023-06-25 19:43] LABS: Anisocytosis 1+; Burr Cells 1+; Hypochromasia 1+; Polychromasia 1+
[2023-06-25 19:44] LABS: ABS Basophils 0.1 10^3/uL (0.0-0.1); ABS Monocytes 0.6 10^3/uL (0.0-1.1); ABS Neutrophils 8.1 10^3/uL (1.5-7.6); ABS Nucleated RBC 0.04 10^3/ul; Albumin 3.6 g/dL (3.2-5.2); Albumin/Globulin Ratio 0.9 (1-3); Calcium 8.2 mg/dL (8.6-10.3); Creatinine, Serum 2.14 mg/dL (0.67-1.17); Eosinophil % 0.2 %; Lymphocyte % 10.2 %; Nucleated Red Blood Cells % 0.5 %/100WBC (0.0-0.8); Potassium 4.2 mmol/L (3.5-5.0); Total Bilirubin 2.3 mg/dL (0.2-1.0); Total Protein 7.6 g/dL (6.4-8.9); eGFR CKD-EPI 34.8 (>60)
[2023-06-25] MEDS: Sodium Bicarbonate 8.4% SYR 50 ml SYRINGE IV ONE ×2 (20:07→23:01)
[2023-06-25] MEDS: Norepinephrine 4 MG/250mL D5W 4,000 MCG/250 ML BAG IV ONE (20:33)
[2023-06-25] MEDS: Norepinephrine 4 MG/250mL D5W 4,000 MCG/250 ML BAG IV SCH (20:33)
[2023-06-25] MEDS: Piperacillin/Tazobac 3.375 BAG 3.375 GM/100 ML BAG IV ONE (20:37)
[2023-06-25] MEDS: Vancomycin 1,750 MG in NS 0.9% 500 ml BAG 500 ML IVPB ONE (21:12)
[2023-06-25] MEDS: Meropenem 1 GM PREMIX(*) 1 GM/50 ML BAG IV SCH (21:29)
[2023-06-25 22:07] LABS: High Sensitivity Troponin 1 Hr 48 pg/mL (<20)
[2023-06-25] MEDS: Sodium Bicarbonate 8.4% SYR 50 ml SYRINGE ONE (23:06)
[2023-06-25] MEDS: Sodium Bicarb 8.4% Vial 50 ML 150 MEQ in D5W 1000 ml BAG 850 ML IV SCH (23:33)
[2023-06-26] MEDS ORDERED: Iodixanol (CONTRAST) 320 MG/ML 100 ML SDV IV ONE (02:50)
[2023-06-26 02:52] LABS: Urine Appearance Turbid; Urine Bilirubin Negative (Negative); Urine Blood Negative (Negative); Urine Color Yellow; Urine Glucose Negative (Negative); Urine Ketones Trace (Negative); Urine Nitrite Negative (Negative); Urine Protein 1+ (>=30 mg/dL) (Negative); Urine Specific Gravity 1.041 (1.002-1.030); Urine Urobilinogen Negative (Negative); Urine pH 5.5 (5.0-8.0)
[2023-06-26 02:56] LABS: Anion Gap 31 mmol/L (2-16); Blood Urea Nitrogen 28 mg/dL (6-24); CO2 Carbon Dioxide 20 mmol/L (22-32); Calcium 6.5 mg/dL (8.6-10.3); Chloride 88 mmol/L (101-111); Creatinine, Serum 2.28 mg/dL (0.67-1.17); Sodium 139 mmol/L (135-145); eGFR CKD-EPI 32.2 (>60)
[2023-06-26] MEDS ORDERED: Sodium Bicarbonate 8.4% SYR 50 ml SYRINGE IV ONE (03:00)
[2023-06-26] MEDS: Sodium Bicarbonate 8.4% VIAL 1 MEQ/ML 50 ml VIAL (50 meq) IV ONE (03:03)
[2023-06-26 03:07] LABS: Urine Bacteria 1+ /HPF (Absent); Urine Red Blood Cell 1+(3-5/hpf) /HPF (0-Trace); Urine Squamous Epithelial Cell Present /HPF (Absent); Urine White Blood Cell Trace(0-5/hpf) /HPF (0-Trace)
[2023-06-26] MEDS: Sodium Bicarbonate 8.4% VIAL 1 MEQ/ML 50 ml VIAL (50 meq) ONE ×2 (03:08→03:09)
[2023-06-26 05:02] LABS: ABS Basophils 0.1 10^3/uL (0.0-0.1); ABS Lymphocytes 1.1 10^3/uL (1.0-4.8); ABS Monocytes 0.6 10^3/uL (0.0-1.1); ABS Neutrophils 8.5 10^3/uL (1.5-7.6); ABS Nucleated RBC 0.11 10^3/ul; Acanthocytes 1+; Burr Cells 2+; Eosinophil % 0.1 %; Hematocrit 31.8 % (38-53); Hemoglobin 9.6 g/dL (13.2-16.3); Lymphocyte % 10.4 %; Mean Corpuscular Hemoglobin 25.8 pg (27-33); Mean Corpuscular Hgb Conc 30.2 g/dL (31-36); Mean Corpuscular Volume 85.3 fL (80-97); Mean Platelet Volume 9.1 fL (7.5-11.2); Nucleated Red Blood Cells % 1.1 %/100WBC (0.0-0.8); Platelet Count 220 10^3/uL (150-450); Polychromasia 1+; Red Blood Count 3.73 10^6/uL (4.06-5.63); Red Cell Distribution Width 20.3 % (12-17); White Blood Count 10.3 10^3/uL (3.6-10.2)
[2023-06-26 06:09] LABS: Calcium 7.7 mg/dL (8.6-10.3); Creatinine, Serum 2.82 mg/dL (0.67-1.17); Magnesium 2.3 mg/dL (1.9-2.7); Potassium 4.1 mmol/L (3.5-5.0)
[2023-06-26 06:30] LABS: Venous Bicarbonate HCO3 7.6 mmol/L (24-28)
[2023-06-26] MEDS: DOBUTamine 2000 MCG/ML IVPREMX 500 MG/250 ML BAG IV SCH (07:26)
[2023-06-26] MEDS ORDERED: Benzocaine/Butamben/Tetracain (CETACAINE - SINGLE USE) 5 gm TOPICAL ONE (07:32)
[2023-06-26] MEDS: Furosemide 40 mg/4 ml IV VIAL ONE ×2 (07:39→07:40)
[2023-06-26] MEDS: Furosemide 20 mg/2 ml IV VIAL IV ONE (08:34)
[2023-06-26 08:36] VITALS: BP 89/56
== END 2023-06-26 12:00 | disposition short-term general hospital (02) | DRG 254 ==
LOC: ED 17:50 → EDHOLD 17:50 → SUATTDRO 06-25 00:37 → MEDTELE 06-25 04:46 → ICU 06-25 19:02
PROVIDERS: ADMIT Internal Medicine; ATTEND Internal Medicine

== ENCOUNTER 2023-06-27 14:55 | Inpatient (IN) ==
[2023-06-27] MEDS: Polyethylene Glycol 3350 17 GM PACKET PO SCH (16:59)
[2023-06-27] MEDS: DOBUTamine 2000 MCG/ML IVPREMX 500 MG/250 ML BAG IV SCH (17:22)
[2023-06-27] MEDS: Norepinephrine 4 MG/250mL D5W 4,000 MCG/250 ML BAG IV SCH ×2 (17:23→21:33)
[2023-06-27] MEDS ORDERED: Vancomycin 750 MG in NS 0.9% 250 ml 250 ML IVPB SCH (17:33)
[2023-06-27] MEDS ORDERED: Zosyn per Pharmacy NOTE FOLLOW UP SCH (18:00)
[2023-06-27] MEDS: Piperacillin/Tazobac 3.375 BAG 3.375 GM/100 ML BAG IV ONE (18:15)
[2023-06-27 18:46] LABS: Hematocrit 24.6 % (38-53); Hemoglobin 8.1 g/dL (13.2-16.3); Mean Corpuscular Hemoglobin 25.9 pg (27-33); Mean Corpuscular Hgb Conc 32.8 g/dL (31-36); Mean Corpuscular Volume 78.8 fL (80-97); Mean Platelet Volume 8.9 fL (7.5-11.2); Platelet Count 191 10^3/uL (150-450); Red Blood Count 3.12 10^6/uL (4.06-5.63); Red Cell Distribution Width 19.4 % (12-17); White Blood Count 8.4 10^3/uL (3.6-10.2)
[2023-06-27 18:58] LABS: Calcium 7.2 mg/dL (8.6-10.3); Creatinine, Serum 1.92 mg/dL (0.67-1.17); Magnesium 1.8 mg/dL (1.9-2.7); Potassium 3.3 mmol/L (3.5-5.0); eGFR CKD-EPI 39.6 (>60)
[2023-06-27 19:11] LABS: ABS Eosinophils 0.1 10^3/uL (0.0-0.5); ABS Lymphocytes 1.4 10^3/uL (1.0-4.8); ABS Monocytes 0.3 10^3/uL (0.0-1.1); ABS Neutrophils 6.6 10^3/uL (1.5-7.6); ABS Nucleated RBC 0.16 10^3/ul; Eosinophil % 0.9 %; Lymphocyte % 16.3 %; Nucleated Red Blood Cells % 1.9 %/100WBC (0.0-0.8)
[2023-06-27 19:47] LABS: Urine Appearance Clear; Urine Bilirubin Negative (Negative); Urine Blood 1+ (Negative); Urine Color Light-Yellow; Urine Glucose 3+ (>=300 mg/dL) (Negative); Urine Ketones Negative (Negative); Urine Nitrite Negative (Negative); Urine Protein 1+ (>=30 mg/dL) (Negative); Urine Specific Gravity 1.021 (1.002-1.030); Urine Urobilinogen 2+ (Negative); Urine pH 7.5 (5.0-8.0)
[2023-06-27] MEDS ORDERED: Vancomycin per Pharmacy 1 EA NOTE FOLLOW UP PRN (19:48)
[2023-06-27 19:49] LABS: Urine Bacteria Absent /HPF (Absent); Urine Red Blood Cell 3+(>10/hpf) /HPF (0-Trace); Urine Squamous Epithelial Cell Present /HPF (Absent); Urine White Blood Cell 1+(6-10/hpf) /HPF (0-Trace)
[2023-06-27] MEDS: Vancomycin 1,500 MG in NS 0.9% 250 ml 250 ML IVPB ONE (20:54)
[2023-06-27] MEDS: Potassium Chlor 20 meq TAB.ER PO SCH (21:48)
[2023-06-28] MEDS: Meropenem 1 GM PREMIX(*) 1 GM/50 ML BAG IV SCH (02:08)
[2023-06-28 07:01] LABS: ABS Basophils 0.1 10^3/uL (0.0-0.1); ABS Eosinophils 0.2 10^3/uL (0.0-0.5); ABS Monocytes 0.3 10^3/uL (0.0-1.1); ABS Neutrophils 5.3 10^3/uL (1.5-7.6); ABS Nucleated RBC 0.22 10^3/ul; Eosinophil % 2.1 %; Hemoglobin 8.5 g/dL (13.2-16.3); Lymphocyte % 25.7 %; Mean Corpuscular Hemoglobin 25.9 pg (27-33); Mean Corpuscular Hgb Conc 32.8 g/dL (31-36); Mean Corpuscular Volume 78.9 fL (80-97); Mean Platelet Volume 9.1 fL (7.5-11.2); Nucleated Red Blood Cells % 2.8 %/100WBC (0.0-0.8); Platelet Count 180 10^3/uL (150-450); Red Cell Distribution Width 19.1 % (12-17)
[2023-06-28 07:12] LABS: Magnesium 1.7 mg/dL (1.9-2.7)
[2023-06-28 08:45] LABS: Calcium 7.5 mg/dL (8.6-10.3); Creatinine, Serum 1.65 mg/dL (0.67-1.17); Potassium 3.6 mmol/L (3.5-5.0); eGFR CKD-EPI 47.5 (>60)
[2023-06-28] MEDS: Magnesium Sulfate 2 gm BAG 2 GM/50 ML BAG IVPB ONE (11:59)
[2023-06-28] MEDS ORDERED: Zosyn per Pharmacy NOTE FOLLOW UP SCH (12:00)
[2023-06-28] MEDS: Vancomycin 1,500 MG in NS 0.9% 250 ml 250 ML IVPB SCH (12:10)
[2023-06-28] MEDS: Magnesium Sulfate IV 1GM/100ML 1 GM/100 ML BAG IV ONE (14:38)
[2023-06-28] MEDS: ZOSYN 3.375 GM x ONE DOSE over 30 miuntes IV (14:52)
[2023-06-28] MEDS: DOBUTamine 2000 MCG/ML IVPREMX 500 MG/250 ML BAG IV SCH (17:55)
[2023-06-28] MEDS: ZOSYN 3.375 GM Q8H per EXTENDED INFUSION IV SCH (18:23)
[2023-06-28 19:57] LABS: High Sensitivity Troponin 1 Hr 704 pg/mL (<20)
[2023-06-28] MEDS: Furosemide 40 mg/4 ml IV VIAL IV SLOW PU ONE (23:44)
[2023-06-29] MEDS: Furosemide 40 mg/4 ml IV VIAL ONE (01:20)
[2023-06-29 05:04] LABS: ABS Basophils 0.1 10^3/uL (0.0-0.1); ABS Eosinophils 0.2 10^3/uL (0.0-0.5); ABS Lymphocytes 2.4 10^3/uL (1.0-4.8); ABS Monocytes 0.3 10^3/uL (0.0-1.1); ABS Nucleated RBC 0.12 10^3/ul; Eosinophil % 2.5 %; Hematocrit 26.2 % (38-53); Hemoglobin 8.6 g/dL (13.2-16.3); Lymphocyte % 34.9 %; Mean Corpuscular Hgb Conc 32.7 g/dL (31-36); Mean Corpuscular Volume 79.6 fL (80-97); Mean Platelet Volume 9.1 fL (7.5-11.2); Nucleated Red Blood Cells % 1.7 %/100WBC (0.0-0.8); Platelet Count 148 10^3/uL (150-450); Red Blood Count 3.29 10^6/uL (4.06-5.63); Red Cell Distribution Width 19.4 % (12-17)
[2023-06-29 05:59] LABS: Calcium 7.3 mg/dL (8.6-10.3); Creatinine, Serum 1.47 mg/dL (0.67-1.17); Magnesium 1.9 mg/dL (1.9-2.7); Potassium 3.5 mmol/L (3.5-5.0); eGFR CKD-EPI 54.6 (>60)
[2023-06-29] MEDS: KCL 20 MEQ/100 ML IVPREMIX 20 MEQ/100 ML BAG IV ONE (08:11)
[2023-06-29] MEDS ORDERED: Potassium EFFERVES 25 meq TAB PO ONE (08:55)
[2023-06-29] MEDS: Fondaparinux 5 MG/0.4 ML SYRINGE SUBCUT SCH (09:29)
[2023-06-29] MEDS: Ferric Gluconate IV 250 MG in NS 0.9% 250 ml 200 ML IVPB SCH (11:47)
[2023-06-29] MEDS: DOBUTamine 2000 MCG/ML IVPREMX 500 MG/250 ML BAG IV SCH (16:56)
[2023-06-29] MEDS ORDERED: Morphine 2 MG/ML SYRINGE IV PRN (18:56)
[2023-06-30] MEDS ORDERED: LORazepam 2 MG/ML 1 mL Syringe IV PRN (07:25)
[2023-06-30] MEDS ORDERED: LORazepam 2 mg VIAL 1 ml IV PUSH PRN (07:36)
[2023-06-30] MEDS ORDERED: Lorazepam PYXIS KEY PRN (07:37)
[2023-06-30] MEDS: Furosemide 40 mg/4 ml IV VIAL IV ONE (10:58)
[2023-06-30] MEDS: Ferric Gluconate IV 250 MG in NS 0.9% 250 ml 200 ML IVPB SCH (11:12)
[2023-06-30] MEDS ORDERED: Vancomycin Trough Check NOTE FOLLOW UP ONE (11:30)
[2023-06-30] MEDS: Heparin 5000 UNITS/ML 1 mL VIAL IV SCH (11:55)
[2023-06-30] MEDS: Heparin DRIP 25,000 UNITS BAG 25,000 UNITS/250 ML BAG IV SCH (11:58)
[2023-06-30 14:55] LABS: ABS Basophils 0.1 10^3/uL (0.0-0.1); ABS Eosinophils 0.3 10^3/uL (0.0-0.5); ABS Lymphocytes 1.7 10^3/uL (1.0-4.8); ABS Monocytes 0.4 10^3/uL (0.0-1.1); ABS Nucleated RBC 0.19 10^3/ul; Acanthocytes 1+; Anisocytosis 1+; Eosinophil % 4.6 %; Hematocrit 27.3 % (38-53); Hemoglobin 8.8 g/dL (13.2-16.3); Hypochromasia 1+; Lymphocyte % 22.4 %; Mean Corpuscular Hemoglobin 26.1 pg (27-33); Mean Corpuscular Hgb Conc 32.1 g/dL (31-36); Mean Corpuscular Volume 81.2 fL (80-97); Mean Platelet Volume 9.2 fL (7.5-11.2); Nucleated Red Blood Cells % 2.5 %/100WBC (0.0-0.8); Platelet Count 160 10^3/uL (150-450); Polychromasia 2+; Red Blood Count 3.37 10^6/uL (4.06-5.63); Red Cell Distribution Width 20.1 % (12-17); White Blood Count 7.6 10^3/uL (3.6-10.2)
[2023-06-30 14:58] LABS: Calcium 8.1 mg/dL (8.6-10.3); Creatinine, Serum 1.31 mg/dL (0.67-1.17); Magnesium 1.6 mg/dL (1.9-2.7); Potassium 3.2 mmol/L (3.5-5.0); eGFR CKD-EPI 62.7 (>60)
[2023-06-30] MEDS: Potassium EFFERVES 25 meq TAB PO ONE (16:03)
[2023-06-30] MEDS: Senna TAB 8.6 mg TAB PO SCH (21:15)
[2023-07-01 04:43] LABS: Hematocrit 26.9 % (38-53); Hemoglobin 8.8 g/dL (13.2-16.3); Mean Corpuscular Hemoglobin 26.4 pg (27-33); Mean Corpuscular Hgb Conc 32.5 g/dL (31-36); Mean Corpuscular Volume 81.3 fL (80-97); Mean Platelet Volume 9.4 fL (7.5-11.2); Platelet Count 143 10^3/uL (150-450); Red Blood Count 3.31 10^6/uL (4.06-5.63); Red Cell Distribution Width 20.1 % (12-17)
[2023-07-01 05:08] LABS: ABS Eosinophils 0.3 10^3/uL (0.0-0.5); ABS Lymphocytes 2.1 10^3/uL (1.0-4.8); ABS Monocytes 0.4 10^3/uL (0.0-1.1); ABS Neutrophils 4.6 10^3/uL (1.5-7.6); ABS Nucleated RBC 0.38 10^3/ul; Anisocytosis 2+; Eosinophil % 4.4 %; Lymphocyte % 28.2 %; Polychromasia 1+
[2023-07-01 05:13] LABS: Calcium 8.2 mg/dL (8.6-10.3); Creatinine, Serum 1.29 mg/dL (0.67-1.17); Magnesium 1.7 mg/dL (1.9-2.7); Potassium 3.6 mmol/L (3.5-5.0); eGFR CKD-EPI 63.9 (>60)
[2023-07-01 05:39] LABS: White Blood Count 7.5 10^3/uL (3.6-10.2)
[2023-07-01] MEDS: Aspirin EC 81 mg TAB.EC (enteric coated) PO SCH (08:46)
[2023-07-01] MEDS: Potassium EFFERVES 25 meq TAB PO ONE (12:55)
[2023-07-01] MEDS: Magnesium Sulfate 2 gm BAG 2 GM/50 ML BAG IVPB ONE (12:57)
[2023-07-01] MEDS: Magnesium Sulfate IV 1GM/100ML 1 GM/100 ML BAG IV ONE (14:19)
[2023-07-02 05:29] LABS: Calcium 8.4 mg/dL (8.6-10.3); Creatinine, Serum 1.5 mg/dL (0.67-1.17); Magnesium 2.2 mg/dL (1.9-2.7); Potassium 4.2 mmol/L (3.5-5.0); eGFR CKD-EPI 53.3 (>60)
[2023-07-02 06:00] LABS: ABS Eosinophils 0.2 10^3/uL (0.0-0.5); ABS Lymphocytes 2.4 10^3/uL (1.0-4.8); ABS Monocytes 0.4 10^3/uL (0.0-1.1); ABS Neutrophils 4.7 10^3/uL (1.5-7.6); ABS Nucleated RBC 0.24 10^3/ul; Anisocytosis 1+; Hematocrit 28.5 % (38-53); Hemoglobin 9.3 g/dL (13.2-16.3); Lymphocyte % 30.8 %; Mean Corpuscular Hemoglobin 26.9 pg (27-33); Mean Corpuscular Hgb Conc 32.5 g/dL (31-36); Mean Corpuscular Volume 82.7 fL (80-97); Mean Platelet Volume 9.4 fL (7.5-11.2); Nucleated Red Blood Cells % 3.1 %/100WBC (0.0-0.8); Platelet Count 163 10^3/uL (150-450); Polychromasia 2+; Red Blood Count 3.45 10^6/uL (4.06-5.63); Red Cell Distribution Width 20.5 % (12-17); White Blood Count 7.7 10^3/uL (3.6-10.2)
[2023-07-02] MEDS ORDERED: Norepinephrine IV 1 MG/ML 4 ML VIAL ONE (11:45)
[2023-07-02] MEDS: Furosemide 40 mg/4 ml IV VIAL IV SLOW PU ONE (14:44)
[2023-07-02] MEDS: Ondansetron 4 mg VIAL 2 MG/ML 2 ml VIAL IV PRN (16:30)
[2023-07-02] MEDS: Ondansetron 4 mg VIAL 2 MG/ML 2 ml VIAL ONE (16:45)
[2023-07-02 17:35] LABS: Calcium 8.6 mg/dL (8.6-10.3); Creatinine, Serum 1.66 mg/dL (0.67-1.17); Potassium 4.2 mmol/L (3.5-5.0); eGFR CKD-EPI 47.2 (>60)
[2023-07-02 18:20] LABS: Hematocrit 30.6 % (38-53); Hemoglobin 9.5 g/dL (13.2-16.3); Mean Corpuscular Hemoglobin 26.4 pg (27-33); Mean Corpuscular Hgb Conc 31.2 g/dL (31-36); Mean Corpuscular Volume 84.5 fL (80-97); Platelet Count 170 10^3/uL (150-450); Red Blood Count 3.61 10^6/uL (4.06-5.63); Red Cell Distribution Width 20.9 % (12-17); White Blood Count 8.2 10^3/uL (3.6-10.2)
[2023-07-02 18:33] LABS: High Sensitivity Troponin 1 Hr 173 pg/mL (<20)
[2023-07-02 18:45] LABS: ABS Basophils 0.1 10^3/uL (0.0-0.1); ABS Eosinophils 0.1 10^3/uL (0.0-0.5); ABS Lymphocytes 1.5 10^3/uL (1.0-4.8); ABS Monocytes 0.5 10^3/uL (0.0-1.1); ABS Nucleated RBC 0.24 10^3/ul; Anisocytosis 2+; Burr Cells 1+; Eosinophil % 0.7 %; Hypochromasia 1+; Lymphocyte % 18.7 %; Nucleated Red Blood Cells % 2.9 %/100WBC (0.0-0.8); Polychromasia 2+
[2023-07-02] MEDS: Benzocaine/Menthol LOZ MT PRN (21:44)
[2023-07-02] MEDS: Magic MouthWash2-BEN/MAAL/LIDO/NYST 240 ML BTL (alt formulation) SWISH SPIT SCH (22:00)
[2023-07-03 05:47] LABS: Calcium 8.4 mg/dL (8.6-10.3); Creatinine, Serum 1.63 mg/dL (0.67-1.17); Potassium 4.5 mmol/L (3.5-5.0); eGFR CKD-EPI 48.2 (>60)
[2023-07-03 06:00] LABS: ABS Eosinophils 0.1 10^3/uL (0.0-0.5); ABS Lymphocytes 2.3 10^3/uL (1.0-4.8); ABS Monocytes 0.5 10^3/uL (0.0-1.1); ABS Neutrophils 4.8 10^3/uL (1.5-7.6); ABS Nucleated RBC 0.18 10^3/ul; Eosinophil % 1.6 %; Hematocrit 28.5 % (38-53); Hemoglobin 9.2 g/dL (13.2-16.3); Lymphocyte % 29.4 %; Mean Corpuscular Hemoglobin 26.9 pg (27-33); Mean Corpuscular Hgb Conc 32.2 g/dL (31-36); Mean Corpuscular Volume 83.6 fL (80-97); Mean Platelet Volume 9.5 fL (7.5-11.2); Nucleated Red Blood Cells % 2.3 %/100WBC (0.0-0.8); Platelet Count 155 10^3/uL (150-450); Red Cell Distribution Width 20.4 % (12-17); White Blood Count 7.8 10^3/uL (3.6-10.2)
[2023-07-03] MEDS ORDERED: Magic MouthWash2-BEN/MAAL/LIDO/NYST 240 ML BTL (alt formulation) SWISH SPIT PRN (15:37)
[2023-07-04] MEDS: Empagliflozin 25 MG TAB PO SCH (10:30)
[2023-07-04 17:19] VITALS: BP 106/62
== END 2023-07-05 13:00 | disposition left against medical advice (07) | DRG 194 ==
LOC: ICU 16:44 → SUATTDRO 16:44 → MED 07-04 17:13
PROVIDERS: ADMIT Student in an Organized Health Care Education/Training Program; ATTEND Internal Medicine

== ENCOUNTER 2023-07-14 22:24 | Inpatient (IN) ==
[2023-07-14 23:03] LABS: INR 1.44 (0.83-1.13)
[2023-07-14 23:19] LABS: Hematocrit 33.3 % (38-53); Hemoglobin 10.7 g/dL (13.2-16.3); Mean Corpuscular Hemoglobin 27.1 pg (27-33); Mean Corpuscular Volume 84.5 fL (80-97); Mean Platelet Volume 8.4 fL (7.5-11.2); Platelet Count 306 10^3/uL (150-450); Red Blood Count 3.94 10^6/uL (4.06-5.63); Red Cell Distribution Width 25.5 % (12-17); White Blood Count 6.2 10^3/uL (3.6-10.2)
[2023-07-14 23:34] LABS: ABS Eosinophils 0.1 10^3/uL (0.0-0.5); ABS Monocytes 0.4 10^3/uL (0.0-1.1); ABS Neutrophils 3.7 10^3/uL (1.5-7.6); ABS Nucleated RBC 0.01 10^3/ul; Anisocytosis 2+; Eosinophil % 1.7 %; Lymphocyte % 31.9 %; Nucleated Red Blood Cells % 0.2 %/100WBC (0.0-0.8); Polychromasia 1+
[2023-07-14] MEDS: Lactated Ringers 1000 ml BAG 1,000 ML IV ONE (23:41)
[2023-07-14 23:54] LABS: Albumin 3.8 g/dL (3.2-5.2); Albumin/Globulin Ratio 0.9 (1-3); Calcium 8.8 mg/dL (8.6-10.3); Creatinine, Serum 1.1 mg/dL (0.67-1.17); Globulin 4.1 g/dL (2-4); Magnesium 1.8 mg/dL (1.9-2.7); Potassium 4.4 mmol/L (3.5-5.0); Total Bilirubin 1.2 mg/dL (0.2-1.0); Total Protein 7.9 g/dL (6.4-8.9); eGFR CKD-EPI 77.3 (>60)
[2023-07-15 00:08] LABS: TSH Ultra Thyroid Stim Horm 3.94 mcIU/mL (0.34-5.60)
[2023-07-15] MEDS: Iodixanol (CONTRAST) 320 MG/ML 100 ML SDV IV ONE ×2 (00:14→15:52)
[2023-07-15] MEDS ORDERED: LORazepam 2 mg VIAL 1 ml IV PUSH PRN (01:20)
[2023-07-15 01:31] LABS: High Sensitivity Troponin 1 Hr 24 pg/mL (<20)
[2023-07-15] MEDS: Morphine 2 MG/ML SYRINGE IV PRN (01:47)
[2023-07-15] MEDS: Ondansetron 4 mg VIAL 2 MG/ML 2 ml VIAL IV ONE (02:10)
[2023-07-15 12:47] LABS: Hematocrit 32.9 % (38-53); Hemoglobin 10.5 g/dL (13.2-16.3); Mean Corpuscular Hemoglobin 27.1 pg (27-33); Mean Corpuscular Volume 84.6 fL (80-97); Mean Platelet Volume 8.6 fL (7.5-11.2); Platelet Count 289 10^3/uL (150-450); Red Cell Distribution Width 25.5 % (12-17); White Blood Count 5.7 10^3/uL (3.6-10.2)
[2023-07-15 13:03] LABS: C Reactive Protein 85.25 mg/L (<8.01)
[2023-07-15] MEDS ORDERED: Metoprolol Tartrate 5 mg VIAL 5 ml VIAL (1 mg/ml) IV PRN (13:17)
[2023-07-15] MEDS: cefTRIAXone 1 gm/50 mL D5W 1 GM/50 ML BAG IV ONE (13:17)
[2023-07-15] MEDS: Azithromycin 500 mg/250 ml NS 500 MG/250 ML BAG IVPB SCH (14:03)
[2023-07-15] MEDS: Digoxin IV 0.5 MG/2 ML AMP (0.25 MG/ML) IV SLOW PU ONE ×2 (14:24→14:43)
[2023-07-15] MEDS: Ondansetron 4 mg VIAL 2 MG/ML 2 ml VIAL IV PRN (14:38)
[2023-07-15] MEDS: Pantoprazole VIAL 40 MG VIAL IV SCH (14:39)
[2023-07-15] MEDS: Enoxaparin 100 MG/ML SYR SUBCUT SCH (14:42)
[2023-07-15] MEDS ORDERED: Morphine 2 MG/ML SYRINGE IV PRN (14:49)
[2023-07-15] MEDS: Morphine 4 MG/ML VIAL (1 ml) ONE (15:52)
[2023-07-15] MEDS: Magnesium Sulfate 2 gm BAG 2 GM/50 ML BAG IVPB ONE (16:02)
[2023-07-15] MEDS: NS 0.9% 250 ml 250 ML IV SCH (16:02)
[2023-07-15 16:13] LABS: ABS Eosinophils 0.1 10^3/uL (0.0-0.5); ABS Lymphocytes 2.4 10^3/uL (1.0-4.8); ABS Monocytes 0.3 10^3/uL (0.0-1.1); ABS Neutrophils 3.3 10^3/uL (1.5-7.6); ABS Nucleated RBC 0.05 10^3/ul; Hematocrit 36.5 % (38-53); Hemoglobin 11.1 g/dL (13.2-16.3); Lymphocyte % 39.5 %; Mean Corpuscular Hemoglobin 27.4 pg (27-33); Mean Corpuscular Hgb Conc 30.3 g/dL (31-36); Mean Corpuscular Volume 90.4 fL (80-97); Mean Platelet Volume 8.7 fL (7.5-11.2); Nucleated Red Blood Cells % 0.8 %/100WBC (0.0-0.8); Platelet Count 220 10^3/uL (150-450); Red Blood Count 4.04 10^6/uL (4.06-5.63); White Blood Count 6.1 10^3/uL (3.6-10.2)
[2023-07-15] MEDS: Magnesium Sulfate 2 gm BAG 2 GM/50 ML BAG ONE (16:20)
[2023-07-15 16:50] LABS: Albumin 3.4 g/dL (3.2-5.2); Albumin/Globulin Ratio 0.9 (1-3); Calcium 7.9 mg/dL (8.6-10.3); Creatinine, Serum 1.48 mg/dL (0.67-1.17); Globulin 3.7 g/dL (2-4); Potassium 5.1 mmol/L (3.5-5.0); Total Bilirubin 1.6 mg/dL (0.2-1.0); Total Protein 7.1 g/dL (6.4-8.9); eGFR CKD-EPI 54.2 (>60)
[2023-07-15] MEDS: Furosemide 40 mg/4 ml IV VIAL IV SLOW PU ONE (17:47)
[2023-07-15] MEDS: DOBUTamine 2000 MCG/ML IVPREMX 500 MG/250 ML BAG IV SCH (17:56)
[2023-07-15] MEDS ORDERED: Dextrose 50% Syringe 50 ml 25 GM/50 ML SYRINGE IV PUSH PRN (18:31)
[2023-07-15] MEDS ORDERED: Ondansetron 4 mg VIAL 2 MG/ML 2 ml VIAL IV PRN (19:03)
[2023-07-15] MEDS: Phenylephrine 40 mcg/mL 10mL (400mcg) SYRINGE IV PUSH ONE (19:26)
[2023-07-15] MEDS: Metoprolol Tartrate 5 mg VIAL 5 ml VIAL (1 mg/ml) IV PRN (22:29)
[2023-07-15 22:49] LABS: Urine Appearance Clear; Urine Bilirubin Negative (Negative); Urine Blood Negative (Negative); Urine Color Colorless; Urine Glucose Negative (Negative); Urine Ketones Negative (Negative); Urine Nitrite Negative (Negative); Urine Protein Negative (Negative); Urine Specific Gravity 1.017 (1.002-1.030); Urine Urobilinogen Negative (Negative)
[2023-07-16 05:44] LABS: Hematocrit 29.7 % (38-53); Hemoglobin 9.6 g/dL (13.2-16.3); Mean Corpuscular Hemoglobin 27.2 pg (27-33); Mean Corpuscular Hgb Conc 32.3 g/dL (31-36); Mean Corpuscular Volume 84.3 fL (80-97); Mean Platelet Volume 8.3 fL (7.5-11.2); Platelet Count 251 10^3/uL (150-450); Red Blood Count 3.53 10^6/uL (4.06-5.63); Red Cell Distribution Width 25.3 % (12-17); White Blood Count 6.8 10^3/uL (3.6-10.2)
[2023-07-16 06:21] LABS: Albumin 3.1 g/dL (3.2-5.2); Albumin/Globulin Ratio 0.9 (1-3); Creatinine, Serum 1.18 mg/dL (0.67-1.17); Globulin 3.4 g/dL (2-4); Potassium 3.8 mmol/L (3.5-5.0); Total Bilirubin 1.4 mg/dL (0.2-1.0); Total Protein 6.5 g/dL (6.4-8.9); eGFR CKD-EPI 71.1 (>60)
[2023-07-16 07:09] LABS: ABS Eosinophils 0.1 10^3/uL (0.0-0.5); ABS Lymphocytes 1.9 10^3/uL (1.0-4.8); ABS Monocytes 0.5 10^3/uL (0.0-1.1); ABS Neutrophils 4.5 10^3/uL (1.5-7.6); ABS Nucleated RBC 0.04 10^3/ul; Anisocytosis 3+; Eosinophil % 0.8 %; Lymphocyte % 27.1 %; Nucleated Red Blood Cells % 0.5 %/100WBC (0.0-0.8); Polychromasia 1+; Schistocytes 1+
[2023-07-16] MEDS: Potassium Chlor 20 meq TAB.ER PO ONE (08:58)
[2023-07-16] MEDS: Polyethylene Glycol 3350 17 GM PACKET PO SCH (08:58)
[2023-07-16 13:00] LABS: C Reactive Protein 89.41 mg/L (<8.01)
[2023-07-16] MEDS: Morphine PCA ADULT 5 MG/ML 30 ML PCA SCH (15:06)
[2023-07-16] MEDS: Morphine 4 MG/ML VIAL (1 ml) IV PRN (22:55)
[2023-07-18] MEDS: Morphine 4 MG/ML VIAL (1 ml) IV PRN (01:33)
[2023-07-18] MEDS: Morphine PCA ADULT 5 MG/ML 30 ML PCA SCH (08:52)
[2023-07-19 18:16] VITALS: BP 154/90
[2023-07-20] MEDS ORDERED: Morphine 10 MG/ML VIAL (1 mL) 100 MG in NS 0.9% 100 ml BAG 90 ML IV SCH (08:00)
[2023-07-20] MEDS: Morphine 10 MG/ML VIAL (1 mL) 100 MG in NS 0.9% 100 ml BAG 90 ML IV SCH (11:22)
[2023-07-20] MEDS ORDERED: Nicotine Lozenge mini 4 MG LOZNG.MINI MT PRN (13:05)
[2023-07-20] MEDS: Naloxone 0.4 mg VIAL 2 MG in NS 0.9% 250 ml 245 ML IV SCH (17:39)
[2023-07-20] MEDS: Atropine 1% (ORAL/SL) 15 ML BTL SL PRN (23:51)
== END 2023-07-18 10:47 | disposition hospice, inpatient (51) | DRG 194 ==
LOC: EDHOLD 22:24 → ED 22:24 → EDHOLD 07-15 12:31 → MEDTELE 07-15 13:29 → ICU 07-15 14:23 → UNDODISIN 07-21 01:13
PROVIDERS: ADMIT Hospitalist; ATTEND Hospitalist

== ENCOUNTER 2023-07-18 10:48 | Inpatient (IN) | END 2023-07-21 01:13 | disposition E | DRG 720 | LOC: ICU 10:48 | PROVIDERS: ADMIT Student in an Organized Health Care Education/Training Program; ATTEND Student in an Organized Health Care Education/Training Program ==